=== PATIENT | female | born 1945 ===

== ENCOUNTER 2017-04-02 07:19 | Day surgery (SDC) | payer MEDICARE, BC ==
[~2017-04-02] VITALS: Ht 162.6 cm; Wt 65.8 kg
[2017-04-02] VITALS (9 sets, daily range): BP systolic 116–148; BP diastolic 76–89
--- NOTE | 2017-04-02 06:50 | Anethesia Preoperative Eval ---
Anesthesia Pre-op PMH/ROS General Date of Evaluation: April 02, 2017 Anesthesiologist: Francesco ASA Score: ASA 2 Mallampati Score Class I : Soft palate, uvula, fauces, pillars visible Class II: Soft palate, uvula, fauces visible Class III: Soft palate, base of uvula visible Class IV: Only hard plate visible Mallampati Classification: Class II Surgeon: Cora Diagnosis: Screening Surgical Procedure: EGd and colon Anesthesia History: none Family History: no anesthesia problems Allergies: Coded Allergies: CODEINE (Verified Allergy, Intermediate, 04/02/17) Medications: see eMAR Past Medical History Cardiovascular: Denies: CAD, HTN, VT, arrhythmia, other, valve dz Pulmonary: Denies: COPD, ALISTAIR, asthma, other Gastrointestinal/Genitourinary: Denies: CRI, ESRD, GERD, other Neurologic/Psychiatric: Denies: CVA, TIA, dementia, depression/anxiety, other Endocrine: Denies: DM, hypothyroidism, other, steroids HEENT: Denies: [place] (L), [place] (R), cataract (L), cataract (R), glaucoma, other Hematology/Immune: Denies: DVT, anemia, bleeding disorder, other Musculoskeletal/Integumentary: Reports: OA, Denies: DDD, DJD, RA, edema, other PSxH Narrative: Right knee arthroscopy, right shoulder Anesthesia Pre-op Phys. Exam Physician Exam see chart Constitutional: NAD Cardiovascular: RRR Respiratory: CTA Airway Exam Mallampati Score: Class II MO: full ROM: full Teeth: intact Anesthesia Pre-op A/P Labs see chart Studies Pre-op Studies: EKG - SR Risk Assessment & Plan Assessment: ASA II Plan: MAC Status Change Before Surgery: No Pre-Antibiotics Drug: N/A KENNETH ALFONSO M.D. April 02, 2017 06:49
[~2017-04-02 07:19] MED LIST: LR 1000ml 1,000 ML IVLG SCH
[2017-04-02] MEDS ORDERED: LR 1000ml 1,000 ML IVLG SCH (07:53)
--- NOTE | 2017-04-02 07:55 | Short Stay Surgery H&P ---
History of Present Illness History of Present Illness Chief Complaint Screening coloon and GERDs and anemia. HPI Arash Watt is a 71 year old female who was admitted on for Abdominal Pain, screening colon and anemia. Patient History Allergies: Coded Allergies: CODEINE (Verified Allergy, Intermediate, 04/02/17) PAST MEDICAL HISTORY: (1) Rhinitis (2) Hypothyroid Past Surgeries: Social History: Review of Systems Cardiovascular: Reports: no symptoms Skeletal: Reports: no symptoms Gastrointestinal: Reports: gastro esophageal reflux disease, see HPI Genitourinary: Reports: no symptoms Neurologic: Reports: no symptoms Endocrine: Reports: no symptoms Hematologic: Reports: no symptoms Physical Exam Vital Signs Last Vital Signs Date Time Temp Pulse Resp B/P Pulse Ox O2 Delivery O2 Flow Rate FiO2 04/02/17 07:50 98.4 70 18 148/89 100 Room Air Skin: normal HENT: normal Heart: normal Lungs: normal Abdomen: normal Extremities: normal Genitourinary: normal Plan Plan of Care Upper and lower GI endoscopy. Preop Interventions None. Summary of Findings See the reports. Final Diagnosis: Attestation Are the patient's medical conditions optimized for surgery? Attestation Response: yes RD ZAMUDIO April 02, 2017 07:55
--- NOTE | 2017-04-02 07:57 | Pre-Procedure Note/Attestation ---
Pre-Procedure Note/Attestation Complete Prior to Procedure Planned Procedure: left Procedure Narrative: Examination of the upper and the lower GI tract via endoscopy. Indications for Procedure Pre-Operative Diagnosis: R/O cancer/gastritis peptic ulcer/polyps in the colon. Attestation I attest that I discussed the nature of the procedure; its benefits; risks and complications; and alternatives (and the risks and benefits of such alternatives ), prior to the procedure, with the patient (or the patient's legal door to door sales representative). I attest that, if there was a reasonable possibility of needing a blood transfusion, the patient (or the patient's legal door to door sales representative) was given the [place] [employer] standardized written summary, pursuant to the [place] Blood Safety Act ([place] Health and Safety Code # 1645, as amended). I attest that I re-evaluated the patient just prior to the surgery and that there has been no change in the patient's H&P, except as documented below: ROBBSAID April 02, 2017 07:57
[2017-04-02] MEDS ORDERED: Lidocaine 1% MPF 10mg/ml 5ml ONE (08:00)
[2017-04-02] MEDS ORDERED: LR 1000ml ONE (08:00)
[2017-04-02] MEDS ORDERED: DiphenhydrAMINE 50mg/ml Inj IVP PRN (08:00)
[2017-04-02] MEDS ORDERED: Propofol 10mg/ml 20ml IV ONE (08:00)
[2017-04-02] MEDS ORDERED: COD LIVER OIL1 EAC1 PO (08:03)
[2017-04-02] MEDS ORDERED: ACTIVELLA 0.5-1 EACH ORAL (08:03)
[2017-04-02] MEDS ORDERED: MOBIC15 MG ORAL (08:03)
[2017-04-02] MEDS ORDERED: IPRATROPIUM BRO15 ML NS (08:03)
[2017-04-02] MEDS ORDERED: BIOTIN5000 MCG PO (08:03)
[2017-04-02] MEDS ORDERED: ASTEPRO205.5 MCG1 NS (08:03)
[2017-04-02] MEDS ORDERED: CALCIUM CITRAT1 EAC2 PO (08:03)
--- NOTE | 2017-04-02 08:32 | Endoscopy Procedure Note ---
Endoscopy Procedure Note Indication for Procedure: Abdominal pain and screening colon with GERDs, anemia. Procedures Performed: EGD - Small Hiatal Hernia with mild antritis, biopsy taken from prepyloric area otherwise normal findings., colonoscopy - Internal hemorrhoids with high redundancy of left colon and substandard colon prep, otherwise normal total colonoscopy. Specimen: yes Pt Tolerated Procedure Well: Yes Estimated Blood Loss: none Anesthesiologist: Dr. Mohan Medication Given: see anesthesia record Implant(s) used?: No 50 yrs or older w/o bx or poly: Yes 10yrs. F/U not recommended: Yes 10 yrs. F/U needed: Yes 18 years or older w/prev. colo: No <3yrs. since last colonoscopy: Yes Med reason:<3 yrs.: System Reason:<3 yrs[address] ZAMUDIO April 02, 2017 08:32
--- NOTE | 2017-04-02 08:33 | Discharge Instructions ---
Discharge Instructions Discharge Instructions Follow up with: Follow up in the office after two weeks. For Congestive Heart Failure Reminder Report to your physician any weight gain of 5 pounds or more in one week. RD ZAMUDIO April 02, 2017 08:33
--- NOTE | 2017-04-02 08:41 | Immediate Post-Op Evaluation ---
Immediate Post-Op Evalulation Immediate Post-Op Evalulation Procedure: EGD and colonoscopy Date of Evaluation: April 02, 2017 Time of Evaluation: 08:40 IV Fluids: 300 Blood Products: 0 Estimated Blood Loss: 0 Urinary Output: 0 Blood Pressure Systolic: 124 Blood Pressure Diastolic: 72 Pulse Rate: 61 Respiratory Rate: 16 O2 Sat by Pulse Oximetry: 100 Temperature (Fahrenheit): 97.3 Pain Score (1-10): 0 Nausea: No Vomiting: No Complications 0 Patient Status: awake, reacts, patent, none Hydration Status: adequate Drug: N/A KENNETH ALFONSO M.D. April 02, 2017 08:41
--- NOTE | 2017-04-02 09:43 | 48 Hour Post Anesthesia Eval ---
Post Anesthesia Evaluation Procedure: EGD and colonoscopy Date of Evaluation: April 02, 2017 Time of Evaluation: 09:43 Blood Pressure Systolic: 132 0: 83 Pulse Rate: 62 Respiratory Rate: 16 O2 Sat by Pulse Oximetry: 99 Airway: patent Nausea: No Vomiting: No Pain Intensity: 0 Hydration Status: adequate Cardiopulmonary Status: at baseline Mental Status/LOC: patient returned to baseline Post-Anesthesia Complications: 0 Follow-up care needed: ready to discharge KENNETH ALFONSO M.D. April 02, 2017 09:43
--- NOTE | 2017-04-02 16:48 | Operative Note - Dictated ---
DATE OF OPERATION: 04/02/2017 PROCEDURE: Esophagogastroduodenoscopy with biopsy. PREOPERATIVE DIAGNOSES: Abdominal pain, history of gastroesophageal reflux and anemia. POSTOPERATIVE DIAGNOSES: 1. Small hiatal hernia. 2. Mild inflammatory process in the antrum consistent with mild antritis. Biopsy was taken from prepyloric area, otherwise normal study. MEDICATION USED: Per Dr. Mohan. INSTRUMENT: Gif Olympus upper gastrointestinal video endoscope. DESCRIPTION OF PROCEDURE: The patient after arriving in the endoscopy unit, was told about risks and benefits of the procedure, which she accepted and signed the informed consent. Subsequently, she was put on the left lateral decubitus position. After adequate IV sedation, the scope gently passed through the cricopharyngeal area, was lodged into the upper esophagus, and gradually advanced towards gastroesophageal junction. The entire length of the esophagus looked normal and there was no any evidence of varices inflammatory process, ulceration, exudate etc. No strictures. GE junction was also examined, which revealed normal findings except presence of a small hiatal hernia, but no Gerber's noted. At this time, the scope was advanced into the stomach. Gastric cavity was distended with insufflation of air. Gradually the areas of the fundus and the body and the antrum were examined closely, revealed no particular abnormality except presence of small inflammatory process in the pre-pyloric area and distal antrum consistent with mild antritis. One random biopsy from this area was obtained. Subsequently, the scope was passed through the pylorus. First and second portion of duodenum were found to be completely normal. At this time, the scope was pulled back into the stomach. Gastric cavity was distended and further examination on retroflexion maneuver of the scope evaluating the areas of the fundus did not reveal any other abnormalities. At this point, the scope was pulled out and the procedure was terminated. The patient tolerated the procedure well. Said Tk Shepherd DR: DAVEY JOB#: [id number] CC:
--- NOTE | 2017-04-02 16:48 | Operative Note - Dictated ---
DATE OF OPERATION: 04/02/2017 SURGEON: Anisha Shepherd M.D. PREOPERATIVE DIAGNOSIS: Screening colonoscopy. POSTOPERATIVE DIAGNOSIS: 1. Evidence of internal hemorrhoid. 2. Highly redundant left colon and substandard prep, otherwise completely normal study up to the base of the cecum as examined. MEDICATIONS USED: Per Dr. Mohan. INSTRUMENT: GIF Olympus videocolonoscope. DESCRIPTION OF PROCEDURE: The patient after arriving at the endoscopy unit was told about risks and benefits of the procedure, which she accepted and signed the informed consent. At this time, she was put in the left lateral decubitus position. After adequate IV sedation, the scope was passed through the anal area, which revealed evidence of external hemorrhoidal tag. On retroflexion maneuver, which was applied in the rectum, revealed evidence of mild internal hemorrhoids. They were not friable. The rest of the rectum was completely normal without any evidence of pathology, inflammatory process, polyps, tumors, etc. At this time, the scope was straightened and passed into rather redundant left colon, which was filled with liquidy stool, consistent with poor colonic preparation. However, there was no any gross pathology. Multiple irrigations where made in this area to be able to examine the colon in a better way, which did not reveal any polypoid lesions or inflammatory process, ulcers, tumors, etc. Gradually, the scope was passed through highly redundant left colon reaching to the splenic flexure, transverse colon, hepatic flexure, and finally was guided into the right ascending colon all the way to the base of the cecum. All these areas remained to be completely normal without any particular pathology. Finally, within 6 minutes, the scope was gradually pulled out and reexamination of the colon did not add any other findings other than what was stated earlier. Finally, the procedure was terminated. The patient tolerated the procedure well and left the endoscopy room in a good condition. Anisha Shepherd M.D. DR: CARLOS JOB#: [id number] CC:
== END 2017-04-02 10:05 | disposition home or self-care (01) ==
LOC: GAS 07:19
DX: Z12.11 Encounter for screening for malignant neoplasm of colon (principal); K64.8 Other hemorrhoids; Q43.8 Other specified congenital malformations of intestine; K29.60 Other gastritis without bleeding; K44.9 Diaphragmatic hernia without obstruction or gangrene; K31.9 Disease of stomach and duodenum, unspecified; D64.9 Anemia, unspecified; E03.9 Hypothyroidism, unspecified; J31.0 Chronic rhinitis; M19.90 Unspecified osteoarthritis, unspecified site; Z88.5 Allergy status to narcotic agent
CPT/HCPCS: 43239; G0121; J2704; J7120; 94003; 94150